=== PATIENT | female | born 1990 | race Caucasian/White ===

== ENCOUNTER 2016-11-25 19:06 | Emergency (ER) | payer MEDICAID ==
[~2016-11-25] VITALS: Ht 160 cm; Wt 68.0 kg
[~2016-11-25 19:06] MED LIST: PREN1CHW7 PO
[2016-11-25 19:08] VITALS: BP 125/72; PULSE 80; RESP 18; TEMP 98.6; O2SAT 100
[2016-11-25] MEDS ORDERED: CYCL1TAB29 PO (21:15)
[2016-11-25] MEDS ORDERED: IBUP-232 PO (21:15)
--- NOTE | 2016-11-25 21:15 | PD ---
HPI Chief Complaint: Back/ Neck Pain or Injury Time Seen by Provider: 21:08 Travel History International Travel<30 days: No Contact w/Intl Traveler<30days: No Traveled to known affect area: No History of Present Illness HPI The patient is a 26-year-old female who presents emergency department for right sided neck and back pain that radiates into the right arm. The patient states her symptoms started 3 days ago with left ankle swelling which is currently resolved. She then developed some right sided neck pain that radiates from the left trapezius across the back to the right trapezius with pain upon movement of the right upper extremity and pain with turning her head to the right. She denies any lower back pain or radiculopathy down the lower extremities. She denies any urinary or fecal incontinence. The patient's currently 15 weeks , states she is "high risk "and has been working at [employer]. However, she denies any recent trauma or heavy lifting the right upper extremity. The patient is followed at the [facility] Past Medical History Medical History: Denies Significant Hx Cancer: No Cardiovascular Problems: No Diabetes: No Diminished Hearing: No Endocrine: No Genitourinary: No Hepatitis: No Hiatal Hernia: No Immune Disorder: No Musculoskeletal: No Neurologic: No Psychiatric: No Reproductive: Yes (MISSED AB) Respiratory: No Integumentary: Yes (MRSA INFECTIONS) Thyroid Disease: No ?: Not LMP: 2-6-17 : 3 Para: 1 Miscarriage: 1 : 0 Dilation and Curettage (D&C): Yes Past Surgical History Surgical History: No Previous Surgery Gynecologic Surgery: Yes Social History Alcohol Use: No Tobacco Use: No Substance Use: No Allergies-Medications (Allergen,Severity, Reaction): Coded Allergies: Pen-Vee K (Verified Allergy, Severe, SWELLING, 11/08/16) Latex (Verified Allergy, Mild, hives, 11/08/16) *MDRO Multi-Drug Resistant Organism (Verified Allergy, Unknown, 11/08/16) MRSA Wound 2006 Reported Meds & Prescriptions Reported Meds & Active Scripts Active Vitafol Gummies 3.33-0.333-34.8 mg ( Vit W/ Ferric Phospha) 1 Chw Chw 3 Tab PO DAILY Citranatal [place] ( W/O Vit A W/ Fe Fumar) 27-1-260 Mg Cap Review of Systems Except as stated in HPI: all other systems reviewed are Neg General / Constitutional: No: Fever Eyes: No: Photophobia HENT: Positive: Neck Stiffness, Neck Pain, No: Headaches Gastrointestinal: No: Nausea, Vomiting Genitourinary: No: Dysuria, Incontinence Musculoskeletal: Positive: Limited ROM, Pain Neurologic: No: Focal Abnormalities Physical Exam Narrative GENERAL: Awake, alert, pleasant 26-year-old female who appears her stated age and is in no acute respiratory distress. SKIN: Focused skin assessment warm/dry. HEAD: Atraumatic. Normocephalic. EYES: Pupils equal and round. No scleral icterus. No injection or drainage. ENT: No nasal bleeding or discharge. Mucous membranes pink and moist. NECK: Trachea midline. No JVD. Patient is tender over the paravertebral muscles bilaterally as well as the right trapezius. She is able to rotate to the left, has limited range of motion with rotation to the right. She is able to put her chin to her chest, there are no meningeal signs. GASTROINTESTINAL: Abdomen soft, gravid inferior to the umbilicus. MUSCULOSKELETAL: No obvious deformities. No clubbing. No cyanosis. No edema. No edema or erythema noted of the ankles. Full range of motion with flexion the hips, knees, and ankles bilaterally. Full range of motion left upper chart. Patient has limited range of motion with abduction and adduction of the right shoulder secondary to pain. Intrinsic hand muscles on the right are intact. Positive right radial pulses bilateral and dorsalis pedal pulses bilateral. NEUROLOGICAL: Awake and alert. No obvious cranial nerve deficits. Motor grossly within normal limits. Normal speech. Nonfocal. Sensation is intact with radial, median, and ulnar distribution of the right arm. PSYCHIATRIC: Appropriate mood and affect; insight and judgment normal. Data Data Last Documented VS Vital Signs Date Time Temp Pulse Resp B/P Pulse Ox O2 Delivery O2 Flow Rate FiO2 11/25/16 19:08 98.6 80 18 125/72 100 MDM Medical Decision Making Medical Screen Exam Complete: Yes Emergency Medical Condition: Yes Medical Record Reviewed: Yes Differential Diagnosis Differential diagnosis includes neck strain, cervical radiculopathy, herniated disc, myositis, arthritis, musculoskeletal pain. Narrative Course The patient's physical examination is consistent with musculoskeletal pain with possible radiculopathy. The patient has no meningeal signs, is afebrile, and has no abdomen or lower back symptoms. I had a discussion with the patient regarding medications and safety in . I had a discussion with the patient regarding category B for Motrin and Flexeril in the second trimester, ibuprofen as a category D in the third trimester. However, the patient is only 15 weeks and 2 days. After discussion with the patient it was agreed she would be placed on ibuprofen and Flexeril, advised to apply ice and/or heat to the affected area and to follow-up with her primary physician. Diagnosis Primary Impression: Neck and shoulder pain Patient Instructions: General Instructions Additional Instructions: Medications as directed. Apply ice and/or heat to the affected area. Follow- up with your primary physician. Return if symptoms worsen or progress. Med/Other Pt SpecificInfo: Prescription(s) given Scripts Ibuprofen 600 Mg Sem596 Mg PO Q6H PRN (Pain/Inflammation) #20 TAB Ref 0 Prov:Petros Coreas MD 11/25/16 Cyclobenzaprine (Flexeril)10 Mg Tab10 Mg PO TID 10 Days Ref 0 Prov:Petros Coreas MD 11/25/16 Disposition: 01 DISCHARGE HOME Condition: Stable Petros Coreas MD November 25, 2016 21:15
== END 2016-11-25 21:32 | disposition home or self-care (01) ==
LOC: NEPD 19:06
DX: M54.2 Cervicalgia (principal)
CPT/HCPCS: 99283

== ENCOUNTER 2017-03-06 18:17 | Emergency (ER) | payer MEDICAID ==
--- NOTE | 2017-03-06 19:31 | PD ---
HPI Chief Complaint Contractions abdominal pain and pressure Date Seen: Mar 06, 2017 Travel History International Travel<30 Days: No Contact w/Intl Traveler<30Days: No Known Affected Area: No History of Present Illness HPI Patient is 26-year-old white female at 29 weeks [facility] She presents complaining of contractions since 26 weeks but today much worse. Also complains of pelvic pressure. No bleeding or leakage of fluid. heart rate tracing is reactive and there is a contraction about every 20-25 minutes Weeks Gestation: 29 Para: 2 : 3 History Obstetric History Obstetric History Vaginal delivery and 1 , one baby was delivered at 36 weeks Past Surgical History Narrative Surgical 1 Social History Alcohol Use: No Tobacco Use: No Substance Abuse: No Allergies-Medications (Allergen,Severity, Reaction): Coded Allergies: penicillin V (Unverified Allergy, Severe, SWELLING, 02/22/17) latex (Unverified Allergy, Mild, hives, 02/22/17) *MDRO Multi-Drug Resistant Organism (Verified Allergy, Unknown, 02/22/17) MRSA Wound 2006 Home Meds Active Scripts Vit W/ Ferric Phospha (Vitafol Gummies 3.33-0.333-34.8 mg) 1 Chw Chw, 3 TAB PO DAILY, #90 BOTTLE 11 Refills Prov:Umu Bautista 11/08/16 W/O Vit A W/ Fe Fumar (Citranatal [place]) 27-1-260 Mg Cap Prov:Umu Bautista 11/08/16 Review of Systems General / Constitutional: No: Fever, Weight Gain, Chills, Other Eyes: No: Diploplia, Blurred Vision, Visual changes, Pain, Photophobia HENT: No: Headaches, Vertigo, Lightheadedness Cardiovascular: No: Irregular Rhythm, Chest Pain or Discomfort, Palpitations, Tachycardia, Syncope, Varicosities, Edema, Cyanosis Respiratory: No: Cough, Short of Breath, Other Gastrointestinal: Abdominal Pain, No: Nausea, Vomiting, Diarrhea Genitourinary: No: Decreased Urinary Output, Oliguria Musculoskeletal: No: Limited ROM, Weakness, Cramping, Edema, Pain Skin: No Rash, No Itching, No Dryness, No Lumps, No Change in Pigmentation, No Change in Nails, No Alopecia, No Lesions Neurologic: No: Weakness, Dizziness, Syncope, Focal Abnormalities, Coordination Problem, Headache, Slurred Speech, Seizures Psychiatric: No: Depression, Suicidal Ideations, Homicidal Ideation Endocrine: No: Heat Intolerance, Cold Intolerance, Polydipsia, Polyuria, Other Physical Exam Narrative GENERAL: Well-nourished, well-developed patient. SKIN: Warm and dry. HEAD: Normocephalic and atraumatic. EYES: No scleral icterus. No injection or drainage. ENT: No nasal drainage noted. Mucous membranes pink. Airway patent. NECK: Supple, trachea midline. No JVD. CARDIOVASCULAR: Regular rate and rhythm without murmurs, gallops, or rubs. RESPIRATORY: Breath sounds equal bilaterally. No accessory muscle use. BREASTS: Bilateral exam showed no masses , no retractions, no nipple discharge. ABDOMEN/GI: Abdomen soft, non-tender, bowel sounds present, no rebound, no guarding Gravid to [-29] weeks size Fundal Height: [-29] GENITOURINARY: External Genitalia: intact and normal in appearance BUS glands: [-] Cervix: [Posterior-] Dilatation: [Closed-] Effacement: [-] Thick Station: [-3] Membranes: [intact ] Uterine Contractions: [She is having a contraction approximately every 20-25 minutes that would average out to about 3 contractions an hour-] FHT's: Category: [1-] Baseline: [133-] Reactive: [yes-] Variability: [-mod] Decels: [-none] EXTREMITIES: No cyanosis or edema. BACK: Nontender without obvious deformity. No CVA tenderness. NEUROLOGICAL: Awake and alert. Motor and sensory grossly within normal limits. Five out of 5 muscle strength in all muscle groups. Normal speech. MDM Interpretation(s) Patient is 26-year-old white female with 1 now 29 weeks presents 1 day of contractions pelvic pain and pressure just and overall discomfort and malaise, she denies bleeding or rupture the membranes. Baby is active. heart rate tracing is reactive and there is a contraction approximately every 20-25 minutes on the monitor. Cervix is closed thick and high, urinalysis negative on dipstick. Offered the patient a pain shot but she doesn't want this this time Plan Plan to discharge patient home to bedrest, heating pad, Tylenol by mouth liberally, and to return if contractions get as close together as every 5 minutes currently every 20-30 minutes is not enough to actually implemented therapy for Diagnosis Diagnosis: Primary Impression: Abdominal pain during in third trimester Disposition: 01 DISCHARGE HOME Condition: Stable Dutch Jean II, MD Mar 06, 2017 19:31
[2017-03-14] MEDS ORDERED: BLOOD GLUCOSE T1 TES (09:05)
[2017-03-14] MEDS ORDERED: BLOOD GLUCOSE M1 KIT (09:05)
[2017-03-14] MEDS ORDERED: LANCETS1 MI1 (11:09)
[2017-03-15] MEDS ORDERED: BLOOD GLUCOSE M1 KIT (11:49)
== END 2017-03-06 20:58 | disposition home or self-care (01) ==
LOC: HOBED 18:17
DX: O47.03 False labor before 37 completed weeks of gestation, third trimester (principal); Z3A.29 29 weeks gestation of pregnancy
CPT/HCPCS: 99283

== ENCOUNTER → 2017-03-10 | Outpatient (CLI) | payer MEDICAID ==
[~2017-03-10] MED LIST changes: +BLOOD GLUCOSE M1 KIT; +BLOOD GLUCOSE T1 TES; +LANCETS1 MI1
== END ==
LOC: CDED 09:48
PROVIDERS: ATTEND Obstetrics & Gynecology
DX: O24.419 Gestational diabetes mellitus in pregnancy, unspecified control (principal)
CPT/HCPCS: 97802

== ENCOUNTER → 2017-04-11 | Outpatient (CLI) | payer MEDICAID | LOC: HPND 14:07 | PROVIDERS: ATTEND Obstetrics & Gynecology | DX: O09.293 Supervision of pregnancy with other poor reproductive or obstetric history, third trimester (principal) | CPT/HCPCS: 76816 ==

== ENCOUNTER 2017-04-27 20:16 | Emergency (ER) | payer MEDICAID ==
[2017-04-27 21:10] VITALS: PULSE 77
[2017-04-27] MEDS ORDERED: ONDANSETRON ODT 4 MG TAB PO ONE (21:15)
[2017-04-27 21:20] VITALS: PULSE 83
[2017-04-27 21:40] VITALS: PULSE 79
--- NOTE | 2017-04-27 21:42 | PD ---
HPI Chief Complaint back pain, n/v, lost mucous plug, irregular contractions Date Seen: Apr 27, 2017 Time Seen: 21:20 Travel History International Travel<30 Days: No Contact w/Intl Traveler<30Days: No Known Affected Area: No History of Present Illness HPI Pt is a 26 y/o with IUP at 37.1 wks who presents for evaluation of c/o low back pain, irregular contractions, loss of mucous plug, decreased movement, and several episodes of nausea with emesis today. PT states contractions are irregular. Back pain, constant and dull. decreased FM since this am, but feeling active movement since arrival. denies vb, lof Weeks Gestation: 37 Para: 2 : 4 History Past Medical History Medical History: Denies Significant Hx Obstetric History Obstetric History 2007 FTSVD at 41 wks 2015 primary at 36 wks for FHR abnormality, low GUSTAVO 18 wk IUFD Past Surgical History Narrative Surgical Family History Family History: Negative Social History Alcohol Use: No Tobacco Use: No Substance Abuse: No Allergies-Medications (Allergen,Severity, Reaction): Coded Allergies: penicillin V (Verified Allergy, Severe, SWELLING, 04/26/17) latex (Verified Allergy, Mild, hives, 04/26/17) *MDRO Multi-Drug Resistant Organism (Verified Allergy, Unknown, 04/26/17) MRSA Wound 2006 Home Meds Active Scripts Blood Glucose Monitoring W/Device (Blood Glucose Monitoring W/Device) 1 Kit Kit , KIT .ROUTE DIRECTED for Blood Sugar Management, #1 0 Refills Prov:Devorah Robison 03/15/17 Lancets (Lancets) 1 Mis Mis, EA .ROUTE DIRECTED, #1 2 Refills Prov:Devorah Robison 03/14/17 Blood Glucose Test Strips (Blood Glucose Test Strips) Strips Strip, EA .ROUTE DIRECTED for Blood Sugar Management, #1 2 Refills Prov:Devorah Robison 03/14/17 Vit W/ Ferric Phospha (Vitafol Gummies 3.33-0.333-34.8 mg) 1 Chw Chw, 3 TAB PO DAILY, #90 BOTTLE 11 Refills Prov:Umu Bautista 11/08/16 W/O Vit A W/ Fe Fumar (Citranatal [place]) 27-1-260 Mg Cap Prov:Umu BautistaPete KEITA 11/08/16 Review of Systems General / Constitutional: No: Fever, Weight Gain, Weight Loss, Chills, Other Eyes: No: Diploplia, Blurred Vision, Visual changes, Pain, Photophobia, Other HENT: No: Headaches, Vertigo, Dental Difficulties, Lightheadedness, Other Cardiovascular: No: Irregular Rhythm, Chest Pain or Discomfort, Palpitations, Tachycardia, Syncope, Varicosities, Edema, Cyanosis, Other Respiratory: No: Cough, Short of Breath, Wheezing, Other Gastrointestinal: Nausea, Vomiting, Abdominal Pain Genitourinary: Frequency Musculoskeletal: No: Limited ROM, Weakness, Cramping, Edema, Pain, Other Skin: No Rash, No Itching, No Dryness, No Lumps, No Change in Pigmentation, No Change in Nails, No Alopecia, No Lesions, No Breast Lumps, No Breast Tenderness , No Breast Swelling, No Other Neurologic: No: Weakness, Dizziness, Syncope, Focal Abnormalities, Coordination Problem, Headache, Slurred Speech, Seizures, Other Psychiatric: No: Anxiety, Depression, Suicidal Ideations, Disorder of Thought, Mood Disorder, Substance Abuse, Homicidal Ideation, Other Endocrine: No: Heat Intolerance, Cold Intolerance, Polydipsia, Polyuria, Other Hematologic/Lymphatic: No Easy Bruising, No Lymph Node Enlargement, No Other Physical Exam 119/68, 72, 18, 98.8 Narrative GENERAL: Well-nourished, well-developed patient. SKIN: Warm and dry. HEAD: Normocephalic and atraumatic. EYES: No scleral icterus. No injection or drainage. ENT: No nasal drainage noted. Mucous membranes pink. Airway patent. NECK: Supple, trachea midline. No JVD. CARDIOVASCULAR: Regular rate and rhythm without murmurs, gallops, or rubs. RESPIRATORY: Breath sounds equal bilaterally. No accessory muscle use. ABDOMEN/GI: Abdomen soft, non-tender, bowel sounds present, no rebound, no guarding Gravid GENITOURINARY: External Genitalia: intact and normal in appearance BUS glands: [wnl] Cervix: 1/thick per RN exam Membranes: [intact] Uterine Contractions: irritability/irregular FHT's: Category: 1 Baseline: 130 Reactive: yes Variability: mod Decels: no EXTREMITIES: No cyanosis or edema. BACK: Nontender without obvious deformity. No CVA tenderness. NEUROLOGICAL: Awake and alert. Motor and sensory grossly within normal limits. Five out of 5 muscle strength in all muscle groups. Normal speech. Data Data Vital Signs Reviewed: Yes Orders Orders Vital Signs (Adult) .ON ADMISSION (04/27/17 21:15) ^ Labor Status (04/27/17 21:15) ^ Non Stress Test (04/27/17 21:15) ^ Hydration (04/27/17 21:15) Ondansetron Odt (Zofran Odt) (04/27/17 21:15) Group B Strep: Negative Labs UA: negative MDM Medical Record Reviewed: Yes Narrative Course / MDM 26 y/o with IUP at 37.1 wks 1. contractions--no evidence of active labor 2. back pain--tylenol prn 3. decreased FM--feeling active movement now and cat 1/reactive tracing 4. n/v--zofran ODT now then po challenge Plan d/c home labor precautions Diagnosis Diagnosis: Primary Impression: Nausea & vomiting Additional Impression: 37 weeks gestation of Disposition: DISCHARGE HOME Condition: Serious Patient Instructions: Movement (ED), Early Labor Signs (ED) Karla Ribeiro MD Apr 27, 2017 21:42
== END 2017-04-27 22:03 | disposition home or self-care (01) ==
LOC: HOBED 20:16
DX: O21.2 Late vomiting of pregnancy (principal); Z3A.37 37 weeks gestation of pregnancy
CPT/HCPCS: 59025

== ENCOUNTER 2017-05-04 04:07 | Inpatient (IN) | payer MEDICAID ==
[~2017-05-04] VITALS: Ht 160 cm; Wt 75.0 kg
[2017-05-04] VITALS (25 sets, daily range): BP systolic 128; BP diastolic 88; PULSE 59–78; RESP 18; TEMP 97.4–98.3
[2017-05-04] MEDS ORDERED: LACTATED RINGER'S 1000 ML INJ 1,000 ML IV PRN (04:41)
[2017-05-04] MEDS ORDERED: MINERAL OIL 10 ML VIAL TOPICAL PRN (04:45)
[2017-05-04] MEDS ORDERED: LIDOCAINE HCL 1% 50 ML VIAL I-DERMAL PRN (04:45)
[2017-05-04] MEDS ORDERED: OXYTOCIN 30 UNITS-500ML PREMIX 500 ML IV ONE (04:45)
[2017-05-04] MEDS ORDERED: SODIUM CHLORID 0.9% 500 ML INJ 500 ML IV PRN (04:45)
[2017-05-04] MEDS ORDERED: CITRIC ACID-SODIUM CITRATE LIQ 30 ML UDC PO SCH (04:45)
[2017-05-04] MEDS ORDERED: LIDOCAINE HCL 1% 50 ML VIAL INFIL PRN (04:45)
--- NOTE | 2017-05-04 04:47 | HHI.HP ---
History & Physical H&P GEOLOGIC TECHNICIAN Consult (Detail) Patient Name: Marlee Kingston Unit Number: [id number] Date of : 1990 Patient Status: Registered Clinic Attending Doctor: Dutch Jean II, MD HPI HPI Chief Complaint . labor pain Date Seen: May 02, 2017 Time Seen: 13:40 Travel History International Travel<30 Days: No Contact w/Intl Traveler<30Days: No Known Affected Area: No History of Present Illness HPI Patient is 26-year-old white female G4 P 2 previous 1 at 38 wks who presents c/o labor pain. she is extremely motivated to she's delivered vaginally with her first baby and she is determined to deliver vaginally with this baby, we discussed the risks of uterine rupture risk being just less than 1% and she understands that could occur before during or at the second stage of labor, she is willing to accept that risk. She is had no problems with this baby is active. Weeks Gestation: 38 Para: 2 : 4 Miscarriage: 1 History (Limited) History Obstetric History Obstetric History Patient had 1 vaginal delivery at term as an induction at 41 weeks, her second she had oligohydramnios and IUGR and she was sectioned at 34-35 weeks for that problem Past Surgical History Narrative Surgical Social History Alcohol Use: No Tobacco Use: No Substance Abuse: No Allergies-Medications Allergies-Medications (Allergen,Severity, Reaction): Coded Allergies: penicillin V (Verified Allergy, Severe, SWELLING, 04/26/17) latex (Verified Allergy, Mild, hives, 04/26/17) *MDRO Multi-Drug Resistant Organism (Verified Allergy, Unknown, 04/26/17) MRSA Wound 2006 Home Meds Active Scripts Blood Glucose Monitoring W/Device (Blood Glucose Monitoring W/Device) 1 Kit Kit , KIT .ROUTE DIRECTED for Blood Sugar Management, #1 0 Refills Prov:Devorah Robison 03/15/17 Lancets (Lancets) 1 Mis Mis, EA .ROUTE DIRECTED, #1 2 Refills Prov:Devorah Robison 03/14/17 Blood Glucose Test Strips (Blood Glucose Test Strips) Strips Strip, EA .ROUTE DIRECTED for Blood Sugar Management, #1 2 Refills Prov:Devorah RobisonPete KEITA 03/14/17 Vit W/ Ferric Phospha (Vitafol Gummies 3.33-0.333-34.8 mg) 1 Chw Chw, 3 TAB PO DAILY, #90 BOTTLE 11 Refills Prov:Umu BautistaPete KEITA 11/08/16 W/O Vit A W/ Fe Fumar (Citranatal [place]) 27-1-260 Mg Cap Prov:Umu Bautista [facility] 11/08/16 ROS Review of Systems General / Constitutional: No: Fever, Weight Gain, Chills, Other Eyes: No: Diploplia, Blurred Vision, Visual changes, Pain, Photophobia HENT: No: Headaches, Vertigo, Lightheadedness Cardiovascular: No: Irregular Rhythm, Chest Pain or Discomfort, Palpitations, Tachycardia, Syncope, Varicosities, Edema, Cyanosis Respiratory: No: Cough, Short of Breath, Other Gastrointestinal: No: Nausea, Vomiting, Diarrhea Genitourinary: No: Decreased Urinary Output, Oliguria Musculoskeletal: No: Limited ROM, Weakness, Cramping, Edema, Pain Skin: No Rash, No Itching, No Dryness, No Lumps, No Change in Pigmentation, No Change in Nails, No Alopecia, No Lesions Neurologic: No: Weakness, Dizziness, Syncope, Focal Abnormalities, Coordination Problem, Headache, Slurred Speech, Seizures Psychiatric: No: Depression, Suicidal Ideations, Homicidal Ideation Endocrine: No: Heat Intolerance, Cold Intolerance, Polydipsia, Polyuria, Other Physical Exam Physical Exam Narrative GENERAL: Well-nourished, well-developed patient. SKIN: Warm and dry. HEAD: Normocephalic and atraumatic. EYES: No scleral icterus. No injection or drainage. ENT: No nasal drainage noted. Mucous membranes pink. Airway patent. NECK: Supple, trachea midline. No JVD. CARDIOVASCULAR: Regular rate and rhythm without murmurs, gallops, or rubs. RESPIRATORY: Breath sounds equal bilaterally. No accessory muscle use. BREASTS: Bilateral exam showed no masses , no retractions, no nipple discharge. ABDOMEN/GI: Abdomen soft, non-tender, bowel sounds present, no rebound, no guarding Gravid to [38-] weeks size Fundal Height: [38-] GENITOURINARY: External Genitalia: intact and normal in appearance BUS glands: [-] Cervix: [-] Dilatation: [5-] Effacement: [90-] Station: [-2] Presentation: [vtx-] Membranes: [intact BBOW] Uterine Contractions: [ reg] FHT's: Category: [1-] Baseline: [133-] Reactive: [-yes] Variability: [-mod] Decels: [-0] EXTREMITIES: No cyanosis or edema. BACK: Nontender without obvious deformity. No CVA tenderness. NEUROLOGICAL: Awake and alert. Motor and sensory grossly within normal limits. Five out of 5 muscle strength in all muscle groups. Normal speech. Data Data [facility] Interpretation(s) This is 26-year-old white female A1 previous 1 who is also a vaginal delivery with her first baby and presents in labor desiring she has risk and benefits that procedure that is considered safe yet has a uterine rupture rate less than 1% and she is an excellent candidate for since she is delivered vaginally with her first baby. She is extremely motivated to deliver this baby vaginally that she does not want to discuss a or scheduled only to wait for this baby to go into labor naturally. Patient understands issues as mentioned above the uterine rupture rate and she plans to follow-up with her [facility] and presents in labor Plan Admit for labor for delivery Diagnosis: previous for Disposition: Labor Condition: Stable Dutch Jean II, MD May 04, 2017 Dutch Jean II, MD May 04, 2017 04:47
[2017-05-04] MEDS: LACTATED RINGER'S 1000 ML INJ 1,000 ML IV SCH ×2 (05:00→11:09)
[2017-05-04] MEDS ORDERED: SODIUM CHLOR 0.9% 1000 ML INJ 1,000 ML IV PRN (05:01)
[2017-05-04 05:11] LABS: AUTOMATED NEUTROPHIL # 12.7 TH/MM3 (1.8-7.7); BASOPHIL # 0.1 TH/MM3 (0-0.2); BASOPHIL % 0.8 % (0.0-2.0); EOSINOPHIL # 0.1 TH/MM3 (0-0.4); EOSINOPHIL % 0.7 % (0.0-4.0); HEMATOCRIT 34.9 % (35.0-46.0); HEMO FLAGS DIFF FINAL; LYMPH % 18.4 % (9.0-44.0); LYMPHOCYTE # 3.2 TH/MM3 (1.0-4.8); MEAN CELL VOLUME 86.2 FL (80.0-100.0); MEAN CORPUSCULAR HEMOGLOBIN 28.9 PG (27.0-34.0); MEAN CORPUSCULAR HGB CONC 33.5 % (32.0-36.0); MONO % 6.5 % (0.0-8.0); NEUT % 73.6 % (16.0-70.0); PLATELET COUNT 201 TH/MM3 (150-450); RED BLOOD COUNT 4.05 MIL/MM3 (4.00-5.30); RED CELL DISTRIBUTION WIDTH 13.7 % (11.6-17.2); WHITE BLOOD COUNT 17.3 TH/MM3 (4.0-11.0)
[2017-05-04 05:37] LABS: BLOOD, URINE MOD (NEG); COMMENT (UR) CULT NOT INDICATED; CULTURE IF INDICATED CULT NOT INDICATED; GLUCOSE,URINE NEG (NEG); KETONE, URINE NEG (NEG); MUCUS URINE FEW /lpf (OCC); NITRITE,URINE NEG (NEG); SQUAMOUS EPITHELIAL CELL URINE 6 /hpf (0-5); URINE COLOR YELLOW (YELLW/STRAW)
--- NOTE | 2017-05-04 09:23 | PD.LABORPN ---
Subjective Subjective AROM by Dr. Jean. Meconium-stained fluids. Patient doing well. Objective Vital Signs Vital Signs Date Time Temp Pulse Resp B/P (MAP) Pulse Ox O2 Delivery O2 Flow Rate FiO2 05/04/17 06:55 60 05/04/17 06:50 73 05/04/17 06:45 59 05/04/17 06:30 78 05/04/17 06:20 61 05/04/17 06:15 63 05/04/17 06:10 64 05/04/17 06:05 61 05/04/17 05:55 63 05/04/17 05:45 62 05/04/17 05:40 64 05/04/17 05:25 70 05/04/17 05:20 66 05/04/17 05:15 66 05/04/17 05:10 65 05/04/17 05:05 64 05/04/17 05:00 62 05/04/17 04:55 74 05/04/17 04:50 74 05/04/17 04:40 66 05/04/17 04:35 76 Objective Pelvic Exam: Cervix: mid Dilatation: 6 Effacement: 90% Station: -2 Presentation: vertex Membranes: AROM Uterine Contractions: every 3-4 min FHT's: Category: 1 Baseline: 110s Reactive: yes Variability: moderate Decels: no Weeks Gestation: 31 Gest Age Assessed Date: May 04, 2017 Gest Age Assessed Time: 05:00 Pt started active labor?: Yes Active labor start date: May 04, 2017 Active labor start time: 05:00 Medical induction of labor?: No Artificial rupture of membrane: Yes Artificial ROM date: May 04, 2017 Artifical ROM time: 08:15 Assessment/Plan Assessment and Plan 26-year-old white female A1 previous 1 who is also a vaginal delivery with her first baby and presents in labor desiring 1. IUP category 1, reassuring 2. Labor -s/p AROM -making cervical progression -anticipate Nely Elder MD R1 May 04, 2017 09:23
[2017-05-04] MEDS ORDERED: OXYTOCIN 30 UNITS-500ML PREMIX 500 ML IV SCH ×2 (12:45→15:00)
--- NOTE | 2017-05-04 12:47 | PD.LABORPN ---
Subjective Subjective Pt uncomfortable with ctx. Objective Vital Signs Vital Signs Date Time Temp Pulse Resp B/P (MAP) Pulse Ox O2 Delivery O2 Flow Rate FiO2 05/04/17 12:36 97.4 05/04/17 12:35 64 18 128/88 (101) 05/04/17 12:30 61 05/04/17 06:55 60 05/04/17 06:50 73 05/04/17 06:45 59 05/04/17 06:30 78 05/04/17 06:20 61 05/04/17 06:15 63 05/04/17 06:10 64 05/04/17 06:05 61 05/04/17 05:55 63 05/04/17 05:45 62 05/04/17 05:40 64 05/04/17 05:25 70 05/04/17 05:20 66 05/04/17 05:15 66 05/04/17 05:10 65 05/04/17 05:05 64 05/04/17 05:00 62 05/04/17 04:55 74 05/04/17 04:50 74 Cvx 6-7/80/-2 at 11am; ctx spaced and thus pitocin initiated; cvx now 8cm Objective Pelvic Exam: Cervix: Dilatation: 8 Effacement: 90 FHT's: Category: 1 Weeks Gestation: 38 Gest Age Assessed Date: May 04, 2017 Gest Age Assessed Time: 05:00 Pt started active labor?: Yes Active labor start date: May 04, 2017 Active labor start time: 05:00 Medical induction of labor?: No Artificial rupture of membrane: Yes Artificial ROM date: May 04, 2017 Artifical ROM time: 08:15 Assessment/Plan Assessment and Plan Anticipate Jair Rubalcava MD May 04, 2017 12:47
--- NOTE | 2017-05-04 13:12 | PD.OB.DELI ---
Weeks gestation: 38 Gest age assessed date: May 04, 2017 Gest age assessed time: 05:00 Pt started active labor?: Yes Active labor start date: May 04, 2017 Active labor start time: 05:00 Medical induction of labor?: No Artificial rupture of membrane: Yes Artificial ROM date: May 04, 2017 Artifical ROM time: 08:15 Anesthesia: None Episiotomy: None Vaginal Delivery: Normal Presentation: Occiput anterior Nuchal Cord: x1 Delayed cord clamping (45 sec): Yes : Female Delivery date: May 04, 2017 Delivery time: 13:02 One Minute : 8 Five Minute : 9 Weight: pending Placenta: Spontaneous delivery, Intact, 3 vessel cord Laceration: No lacerations Estimated blood loss: 200cc Additional Information nuchal unable to be reduced, delivered through Jair Rubalcava MD May 04, 2017 13:12
[2017-05-04] MEDS ORDERED: SODIUM CHLORIDE 0.9% FLUSH 10 ML FLUSH IV FLUSH PRN (13:15)
[2017-05-04] MEDS ORDERED: SODIUM CHLORIDE 0.9% FLUSH 10 ML FLUSH IV FLUSH SCH (14:00)
[2017-05-04] MEDS ORDERED: BENZOCAINE 20% TOPICAL SPRAY 60 ML CAN TOPICAL PRN (15:00)
[2017-05-04] MEDS ORDERED: ALUMINUM/MAGNESIUM/SIMETH 30 ML CUP PO PRN (15:00)
[2017-05-04] MEDS ORDERED: WITCH HAZEL 50%/GLYCERIN 12.5% 40 PAD JAR TOPICAL PRN (15:00)
[2017-05-04] MEDS ORDERED: ACETAMINOPHEN 325 MG TAB PO PRN (15:00)
[2017-05-04] MEDS ORDERED: ONDANSETRON ODT 4 MG TAB PO PRN (15:00)
[2017-05-04] MEDS ORDERED: IBUPROFEN 600 MG TAB PO PRN (15:00)
[2017-05-04] MEDS ORDERED: DOCUSATE SODIUM 50 MG/SENNA 8.6 MG TAB PO PRN (15:00)
[2017-05-04] MEDS ORDERED: ZOLPIDEM TARTRATE 5 MG TAB PO PRN (15:00)
[2017-05-04] MEDS ORDERED: DIPHTH/TETANUS/ACEL PERTUSSIS (BOOSTER) 0.5 ML VIAL/PFS IM ONE (16:00)
[2017-05-04] MEDS ORDERED: MEASLES, MUMPS, RUBELLA VACCINE 0.5 ML VIAL SQ ONE (16:00)
[2017-05-05 07:40] VITALS: PULSE 70; RESP 18; TEMP 98
[2017-05-05] MEDS ORDERED: IBUP-232 PO (09:08)
--- NOTE | 2017-05-05 09:09 | HHI.DCPOC ---
Discharge Care Plan Diagnosis: (1) Normal vaginal delivery Report Symptoms to Your Doctor -Temperature above 100.5 degrees -Redness, of incision or excessive or foul smelling drainage -Unusual pain or calf pain -Increased vaginal bleeding -Painful or difficulty urinating -Feelings of extreme sadness or anxiety after 2 weeks Goals to Promote Your Health * To prevent worsening of your condition and complications * To maintain your health at the optimal level Directions to Meet Your Goals Take your medications as prescribed Follow your dietary instruction Follow activity as directed Ensure plenty of rest for recovery Drink fluids for hydration Keep your appointments as scheduled Take your immunizations and boosters as scheduled If your symptoms worsen call your PCP, if no PCP go to Urgent Care Center or Emergency Room Smoking is Dangerous to Your Health. Avoid second hand smoke Call the 24-hour crisis hotline for domestic abuse at Prashant Patton MD R2 May 05, 2017 09:09
--- NOTE | 2017-05-05 09:11 | HHI.OB ---
Subjective Remarks 26 year old female s/p at 38 wks gestation, PPD 1. AFVSS. Patient reports she is feeling well. Bleeding is decreasing and pain is well- controlled. She is breast feeding and bonding well with baby. Ambulating without difficulties. She is tolerating a diet without nausea or vomiting. She has had a bowel movement. She has passed gas. Denies chest pain, dysuria, shortness of breath, or calf pain. Objective Vitals/I&O Vital Signs Date Time Temp Pulse Resp B/P (MAP) Pulse Ox O2 Delivery O2 Flow Rate FiO2 05/04/17 19:50 98.3 05/04/17 12:36 97.4 05/04/17 12:35 64 18 128/88 (101) 05/04/17 12:30 61 Objective Remarks GENERAL: Well-nourished, well-developed patient. CARDIOVASCULAR: Regular rate and rhythm without murmurs, gallops, or rubs. RESPIRATORY: Breath sounds equal bilaterally. No accessory muscle use. ABDOMEN/GI: Abdomen soft, non-tender. Fundus: Firm, non-tender just below umbilicus. GENITOURINARY: Light to moderate bleeding. EXTREMITIES: No cyanosis or edema, non-tender, without signs of DVT. Medications and IVs Current Medications Medications (Trade) Dose Ordered Sig/Fatuma Route Start Time Stop Time Status Last Admin (fentaNYL INJ) 100 mcg Q1H PRN IV PUSH 05/04/17 07:30 05/04/17 07:27 (fentaNYL INJ) 50 mcg Q1H PRN IV PUSH 05/04/17 07:30 05/04/17 11:02 Oxytocin 500 ml @ 0 mls/hr TITRATE IV 05/04/17 12:45 05/04/17 15:19 (NS Flush) 2 ml BID IV FLUSH 05/04/17 14:00 (NS Flush) 2 ml UNSCH PRN IV FLUSH 05/04/17 13:15 (Tylenol) 650 mg Q4H PRN PO 05/04/17 15:00 (Motrin) 600 mg Q6H PRN PO 05/04/17 15:00 (Americaine 20% Top Spr) 1 spray Q4H PRN TOPICAL 05/04/17 15:00 (Tucks Pads) 1 applic QID PRN TOPICAL 05/04/17 15:00 (Geovanna-Colace) 2 tab Q12H PRN PO 05/04/17 15:00 (Ambien) 5 mg HS PRN PO 05/04/17 15:00 (Mag-Al Plus Susp Liq) 15 ml Q8H PRN PO 05/04/17 15:00 (Zofran Odt) 4 mg Q6H PRN PO 05/04/17 15:00 Assessment/Plan Assessment and Plan 26 yo female s/p , PPD 1 - AFVSS - Continue routine care - Motrin PRN pain - Encourage OOB - Pelvic rest x 6 wks - Contraception: to obtain vasectomy - Discharge home today if baby cleared Prashant Patton MD R2 May 05, 2017 09:11
== END 2017-05-05 15:24 | disposition home or self-care (01) | DRG 775 ==
LOC: HOBED 04:07 → H2EA 04:37 → H1EA 14:58
PROVIDERS: ADMIT Obstetrics & Gynecology Maternal & Fetal Medicine; ATTEND Obstetrics & Gynecology Maternal & Fetal Medicine
PROC: 10E0XZZ Delivery of Products of Conception, External Approach (ICD-10-PCS; principal; 2017-05-04)
PROC: 10907ZC Drainage of Amniotic Fluid, Therapeutic from Products of Conception, Via Natural or Artificial Opening (ICD-10-PCS; 2017-05-04)
DX: O34.219 Maternal care for unspecified type scar from previous cesarean delivery (principal); O77.0 Labor and delivery complicated by meconium in amniotic fluid; O69.81X0 Labor and delivery complicated by cord around neck, without compression, not applicable or unspecified; Z37.0 Single live birth; Z3A.38 38 weeks gestation of pregnancy
CPT/HCPCS: 80307; 81001; 85025; 86850; 86900; 86901; 87641; 88307; J2590; J3010; J7120